=== PATIENT | female | born 1995 | race Caucasian/White ===

== ENCOUNTER 2018-04-10 21:53 | Emergency (ER) | payer OTHER, BC, SELFPAY ==
[2018-04-10 21:54] VITALS: BP 146/90; PULSE 87; RESP 18; TEMP 37.5; O2SAT 99; BMI 38.7
--- NOTE | 2018-04-10 22:28 | CT_ITS ---
STUDY: CT ABDOMEN AND PELVIS WITHOUT CONTRAST REASON FOR EXAM: Female, 22 years old. Right flank pain and decreased urination elevated blood pressure RADIATION DOSAGE (If Supplied By Facility): CTDIvol = ( 20.88 ) mGy, DLP = ( 1116.46 ) mGycm TECHNIQUE: Transaxial images were obtained from the dome of the diaphragm to the symphysis pubis without oral contrast, and without intravenous contrast. Sagittal and coronal images were reconstructed. Individualized dose optimization techniques were used for this CT. COMPARISON: The CT scan abdomen and pelvis April 04, 2013 is unavailable at this time for comparison. FINDINGS: The visualized lung bases are unremarkable. The visualized portions of the heart are within normal limits. The liver is borderline enlarged and fatty infiltrated. Normal gallbladder and extrahepatic biliary system. There is moderate splenic enlargement. Normal pancreas. Normal bilateral adrenal glands. There is no evidence of hydronephrosis of the right kidney or visualized renal stones. There is no evidence of hydronephrosis or visualized renal stones. Normal visualized stomach. There are mildly distended loops of small bowel. There is moderate stool in the colon. The appendix is visualized and appears normal. Normal abdominal aorta. Normal inferior vena cava. There a few nonspecific periaortic lymph nodes. There are small mesenteric lymph nodes Normal urinary bladder. The uterus is visualized and appears of normal size. There is an abnormal mixed density cystic mass within the left and midline pelvis with a focal linear density. This abnormal appearing mixed low attenuating mass measures 15.0 x 11.1 x 11.3 cm. Normal abdominal wall. Normal osseous structures. CT/Abdomen/Pelvis without Cont IMPRESSION: There is a 15 x 11 x 11.3 cm large abnormal mixed density mass within the left of midline pelvis. This may represent a mixed density such as a mature teratoma, or potentially ovarian neoplasm. The size and density is atypical for the evaluation is warranted with a CABLE ASSEMBLER surgical consult. This mass is pushing on the base of the bladder. [id number] constipation. Hepatic steatosis. Moderate splenomegaly. N.B. : The above information has been verbally conveyed by Xena Huitron MD to Tonya Escamilla, Referring Physician, on 04/10/2018 23:59:16 (ET). Electronically Signed: Xena Huitron MD at 0:41 EDT Tel , Service support , N.B. : The above information has been verbally conveyed by Xena Huitron MD to Tonya Escamilla, Referring Physician, on 04/10/2018 23:59:16 (ET).
[2018-04-10 22:36] LABS: Absolute Lymphocyte Count 3.42 X10^3/ul (0.83-4.51); Absolute Neutrophil Count 5.1 X10^3/uL (2.0-7.7); Basophil# 0.09 X10^3/uL; Basophil% 0.9 % (0-1); Eosinophil# 0.24 X10^3/uL; Eosinophils% 2.5 % (0-5); Hematocrit 40.5 % (37-47); Hemoglobin 13.6 g/dl (12.0-15.0); Lymphocyte # 3.42 X10^3/ul (4.0); Lymphocyte % 35.9 % (19-41); Mean Corp Hgb Conc 33.6 g/gl (32-36); Mean Corpuscular Hgb 28.5 pg (27.0-32.0); Mean Corpuscular Volume 84.9 fL (81-99); Mean Platelet Vol. 9.7 fl (6.2-12.0); Monocyte# 0.65 X10^3/uL; Monocyte% 6.8 % (0-10); Neutrophil # 5.12 X10^3/uL (2.7-7.7); Neutrophil % 53.8 % (47-70); Platelet Count 406 K/mm3 (150-450); RBC Distribution Width CV 13.1 % (11.6-14.6); RBC Distribution Width SD 40.3 fl (35.1-43.9); Red Blood Count 4.77 M/mm3 (4.2-5.4); White Blood Count 9.5 K/mm3 (4.4-11.0)
[2018-04-10 22:38] LABS: POSITIVE COUNT NO; POSITIVE DIFFERENTIAL NO; POSITIVE MORPHOLOGY NO
[2018-04-10] MEDS: Ondansetron 4 MG/2 ML Vial IV (22:39)
[2018-04-10] MEDS: Morphine 4 MG/ML Syringe IV (22:39)
--- NOTE | 2018-04-10 22:58 | ED.DCSUM_ITS ---
- ER Visit Summary Date of Service: 04/10/18 Chief Complaint: Right flank pain History of Present Illness: The patient is a 22 F presenting with right flank pain. This started earlier today. She states it was sudden in onset but has been intermittent throughout the day. She denies dysuria, hematuria, frequency. She denies fever. She has history of PCOS and states this feels different than her PCOS type pain. She has a family history of kidney stones. Denies other complaints. Physical Examination: Vitals are stable. Patient is afebrile. Alert no acute distress. HEENT exam is unremarkable. Lungs are clear and equal bilaterally. Heart is regular rate and rhythm. Abdomen is soft right lower quadrant tenderness with no rebound or guarding Back: Right CVA tenderness Extremities are unremarkable. Skin is warm and dry. No focal neurologic deficit. Remainder of exam is unremarkable. Emergency Department Course and Treatment: Patient is given morphine, Zofran IV. CBC, chemistries unremarkable. HCG negative. Urinalysis is 5-10 white cells, [address] flank shows 15 x 11 x 11 cm large abdominal mixed density mass within the left of the midline of the pelvis this may represent mixed density such as a mature teratoma or potentially ovarian neoplasm, size and density is atypical for the evaluation warranting ASSOCIATE FINANCIAL ANALYST consult. The mass is pushing on the base of the bladder. Mild to moderate constipation, hepatic steatosis, moderate splenomegaly. Findings were discussed with Dr. Banda who will see the patient for close outpatient follow-up in the office tomorrow. Patient's pain is controlled. She is given home pack of [place]. Advised return to ED if worsening complaints. Disposition: Discharge home Impression: Pelvic mass This note was generated with adicate timeads dictation software. It may contain incorrect words, spelling, and punctuation that were not noted in review of the chart prior to signing ED Disposition - Plan for ED Patient: Chief Complaint: Flank Pain Referrals: [facility] [Primary Care Provider] -
[2018-04-10 23:00] LABS: Pregnancy, Serum, hCG Quali. NEGATIVE Negative (0-9 Nonpreg)
[2018-04-10 23:10] LABS: Anion Gap 8 (5-15); BUN 12 mg/dL (7-18); BUN/Creat Ratio 13.4 RATIO (10-20); Calcium,Total 8.8 mg/dL (8.5-10.1); Chloride 105 mmol/L (98-107); Creatinine, Serum 0.89 mg/dL (0.55-1.02); EST Glomerular Filtration Rate 83 mL/min (>60); Est Glom Filt Rate - Afr Amer 100 mL/min (>60); Glucose 105 mg/dL (74-106); Potassium 3.7 mmol/L (3.5-5.1); Sodium Level 137 mmol/L (136-145)
[2018-04-10 23:19] LABS: Mucous, Urine 0 SEEN /hpf (<or=2+); Red Blood Cells-Urine 0 SEEN /hpf (0-5)
[2018-04-10 23:24] LABS: Color, Urine Yellow (Yellow); Glucose, Dipstick Normal (Normal); Ketone-Dipstick Negative (Negative); Leukocyte Esterase-Dipstick 500 /ul (Negative); Nitrite-Dipstick Negative (Negative); Occult Blood-Urine Negative /ul (Negative); Protein-Dipstick Negative (Negative); Urine Bilirubin Dipstick Negative (Negative); Urine Clarity Clear (Clear); Urine Urobilinogen Normal (Normal); Urine pH 6.5 (5.0 - 8.0)
[2018-04-10 23:30] LABS: Squamous Epithelial Cells - UA 0-5 SEEN /hpf (5-10)
[2018-04-10 23:31] LABS: Bacteria 1+ /hpf (None Seen); White Blood Cells 5-10 SEEN /hpf (0-5)
--- NOTE | 2018-04-11 00:40 | ED.DEP ---
ED Disposition - Plan for ED Patient: Chief Complaint: Flank Pain Instructions: ED Pelvic Pain [facility] Referrals: [facility] [Primary Care Provider] - Sia Banda MD [STAFF PHYSICIAN] -
[2018-04-11] MEDS: HYDROcodone Bitartrate/Apap 5/325 Tablet PO (01:10)
[2018-04-11 01:12] VITALS: BP 129/86; PULSE 90; RESP 17; O2SAT 96
--- NOTE | 2018-04-11 01:12 | ED.RN ---
IV DC'ED, CATHETER INTACT, SMALL GAUZE DRESSING PLACED. DISCHARGE INSTRUCTIONS GIVEN TO AND REVIEWED WITH PATIENT, PATIENT DENIES QUESTIONS OR CONCERNS AND VOICES UNDERSTANDING OF DISCHARGE INSTRUCTIONS. PT AMBULATES OUT OF ROOM WITHOUT DIFFICULTY.
== END 2018-04-11 01:13 | disposition home or self-care (01) ==
LOC: ED 22:54
PROVIDERS: Emergency Provider Emergency Medicine; Family Provider Family Medicine; PCP Family Medicine
DX: R19.00 Intra-abdominal and pelvic swelling, mass and lump, unspecified site (principal); K59.00 Constipation, unspecified; K76.0 Fatty (change of) liver, not elsewhere classified; R16.1 Splenomegaly, not elsewhere classified; E28.2 Polycystic ovarian syndrome; E11.9 Type 2 diabetes mellitus without complications; Z79.84 Long term (current) use of oral hypoglycemic drugs; Z79.899 Other long term (current) drug therapy
CPT/HCPCS: 74176; 80048; 81001; 84703; 85025; 96374; 96375; 99283; J7030; A4216; J2405

== ENCOUNTER → 2018-10-12 12:15 | Outpatient (CLI) | payer BC, OTHER, SELFPAY ==
[2018-10-12 12:08] VITALS: BMI 38.7
--- NOTE | 2018-10-12 12:18 | RAD_ITS ---
STUDY: X-RAY - LUMBAR SPINE REASON FOR EXAM: Female, 22 years old. Fall TECHNIQUE: 5 view(s) of the lumbar spine were obtained. COMPARISON: None FINDINGS: Normal lumbar lordosis. There is a levoscoliosis of the lumbar spine. Normal vertebral bodies and endplates. Normal disc space heights. There is no demonstrated fracture. The soft tissue structures are unremarkable. RAD/L/S Spine Min 4 Views IMPRESSION: No fracture. Disc spaces are well preserved. Mild scoliosis. Electronically Signed: Reji Nassar MD at 13:57 EST , Service support ,
--- OUTSIDE RECORDS SUMMARY | 2018-11-28 06:51 | XMS RPT_ITS ---
:1995 Author Organization OH[facility] Care Team Providers Name Role Phone Antolin Ferrell Attending Unavailable PROVIDER, UNKNOWN Referring Unavailable Te Rossi Primary Care Unavailable Antolin Ferrell Attending Unavailable PROVIDER, UNKNOWN Referring Unavailable Te Rossi Primary Care Unavailable SIA CAM MD Attending Unavailable Jessee Martino Attending Unavailable Te Rossi Referring Unavailable Jessee Martino Attending Unavailable Jessee Martino Referring Unavailable Te Rossi Primary Care Unavailable Nehemiah Junior Attending Unavailable Mara Calderon Referring Unavailable Mara Calderon Primary Care Unavailable Tonya Escamilla Attending Unavailable Te Rossi Primary Care Unavailable PROBLEMS PROBLEMS DATE TYPE CONDITION / CODE ATTENDING STATUS SOURCE 10/12/2018 Unknown S39.012A - Strain of Jessee Martino Active [facility] muscle, fascia and [facility] tendon of [facility] back, initial Repository encounter / S39.012A(ICD-10) 04/12/2018 Admitting Hypothyroidism, Ghassan, Active [facility] Diagnosis unspecified / [facility] E03.9(ICD-10) Repository 04/12/2018 Admitting Anxiety disorder, Ghassan, Active [facility] Diagnosis unspecified / [facility] F41.9(ICD-10) Repository 04/12/2018 Admitting Major depressive Ghassan, Active [facility] Diagnosis disorder, single [facility] episode, unspecified Repository / F32.9(ICD-10) 04/12/2018 Admitting Polycystic ovarian Ghassan, Active [facility] Diagnosis syndrome / [facility] E28.2(ICD-10) Repository 04/12/2018 Admitting Obesity, unspecified Ghassan, Active [facility] Diagnosis / E66.9(ICD-10) [facility] Repository 04/12/2018 Admitting Body mass index Ghassan, Active [facility] Diagnosis (BMI) 38.0-38.9, [facility] adult / Repository Z68.38(ICD-10) 04/12/2018 Admitting Personal history of Ghassan Active [facility] dis of the nervous [facility] sys and sense organs Repository / Z86.69(ICD-10) 04/12/2018 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 / [facility] D27.0(ICD-10) Repository 04/12/2018 Admitting Unspecified asthma, Ghassan, Active [facility] Diagnosis uncomplicated / [facility] J45.909(ICD-10) Repository 04/12/2018 Admitting Deficiency of other Ghassan, Active [facility] specified B group [facility] vitamins / Repository E53.8(ICD-10) 04/12/2018 Admitting Allergy status to Ghassan Active [facility] Diagnosis penicillin / [facility] Z88.0(ICD-10) Repository 04/12/2018 Admitting prison (current) Ghassan, Active [facility] Diagnosis use of hormonal [facility] contraceptives / Repository Z79.3(ICD-10) 04/11/2018 Admitting Encounter for other Ferrell, Active [facility] preprocedural [facility] examination / Repository Z01.818(ICD-10) 04/11/2018 Admitting Intra-abd and pelvic Ghassan, Active [facility] swelling, mass and [facility] lump, unsp site / Repository R19.00(ICD-10) 04/11/2018 Admitting Encounter for TUTU ANDINO, Active [facility] Diagnosis gynecological [facility] examination Repository (general) (routine) with abnormal findings / Z01.411(ICD-10) 04/11/2018 Admitting Encounter for TUTU ANDINO, Active [facility] Diagnosis screening for human [facility] papillomavirus (HPV) Repository / Z11.51(ICD-10) PROCEDURES PROCEDURES No Procedure Records FoundRESULTS RESULTS URGENT CARE VISIT Observed: 10/12/2018 Status: F Source: JUNIOR REPORT 1:42 PM [facility] REPOSITORY [facility] [address] [place] [address] OFFICE VISIT Date of Service: 10/12/18 MR#: [id number] Acct: [id number] Name: MARSHALLKELLI C Rep #: [id number] : 1995 Provider: Jessee GARZA Age/Sex: 22/F Location: [facility] Status: Signed Intake Vital Signs10/12/18 Height 5 ft 9 in Intake Visit Reasons: BACK SWELLING? Chief Complaint: Back pain Clinical Veterinarian Required: No Accompanied by: Self Is patient in pain?: Yes Allergies amoxicillin [From Augmentin] Allergy (Verified 10/12/18 12:08) Unknown clavulanic acid [From Augmentin] Allergy (Verified 10/12/18 12:08) Unknown Penicillins Allergy (Verified 10/12/18 12:08) Hives Medications drospirenone 3 mg-ethinyl estradiol 0.02 mg tablet 1 tab PO QDAY 10/06/17 [History Confirmed 04/10/18] fluoxetine 10 mg capsule 10 mg PO QDAY 10/06/17 [History Confirmed 04/10/18] lithium carbonate 300 mg capsule 300 mg PO TID cap 10/06/17 [History Confirmed 04/10/18] metformin 500 mg tablet 500 mg PO BID 10/06/17 [History Confirmed 04/10/18] Hydroxyzine HCl 10 mg PO BID 04/10/18 [History Confirmed 04/10/18] acetaminophen 325 mg capsule 325 mg PO Q6H PRN 10/12/18 [History Confirmed 10/12/18] cyclobenzaprine 5 mg tablet 5 mg PO TID PRN #30 tab 10/12/18 [Rx Confirmed 10/12/18] ibuprofen 200 mg capsule 200 mg PO TID-QID PRN 10/12/18 [History Confirmed 10/12/18] PENDING SALE TO [facility] Medical History Anemia (Acute) Asthma (Acute) Bruise (Acute) Difficulty balancing (Acute) Fatigue (Acute) Limb weakness (Acute) PCOS (polycystic ovarian syndrome) (Acute) Severe headache (Acute) Thyroid disease (Acute) Social History Smoking Status: Never smoker alcohol intake: never HPI HPI Chief Complaint: Back pain Details: KELLI MARSHALL, is a 22 F who presents to the office today for concern for left lower back pain after a fall last week. Patient states that after the fall while she was at work she felt a pop in her left lower back and then has since had pain which radiates down the left leg. She states that she has difficulty straightening the left leg due to the pain which she rates a 4-5 out of 10 despite the use of ibuprofen. She denies any numbness or tingling or any loss of bowel/bladder control. No previous back injuries. No other associated symptoms or alleviating/aggravating factors. ROS Const Constitutional: No chills, fever(s), fatigue or abnormal sleep pattern Musc Musculoskeletal: Positive for back pain and radiating pain into limb; no joint swelling, deformity, limited range of motion, numbness, tingling, stiffness or abnormal walking Skin Skin: No wounds or lesions Neuro Neurology: No behavioral changes, confusion, numbness, tingling or abnormal walking Psych Psychiatric: No behavioral changes, No confusion, No abnormal sleep pattern Endo Endocrine: No fatigue Exam Const General: cooperative, healthy appearing Musc Cervical Spine: normal cervical lordosis and cervical ROM normal Thoracic/Lumbar Spine: thoraco-lumbar ROM normal, straight leg raise positive left: at 30 degrees, thoraco-lumbar spasm on the left in the lower lumbar, lumbar spinal tenderness at L5 and at L4 Skin General: no rashes or lesions noted Neuro General: alert, CN's II-XI intact bilaterally Gait: normal gait Motor: muscle tone normal throughout, strength 5/5 throughout Sensory Exam: no sensory deficits noted Psych Appearance: grossly normal Mental Status: mental status grossly normal Assessment AND Plan Problems 1. Strain of lumbar region, initial encounter S39.012A Plan X-ray of the lumbar spine reviewed and interpreted by myself finding no acute bony abnormalities. Awaiting radiology interpretation at time of dictation. Patient advised to use ibuprofen or Tylenol as needed for pain as well as given a prescription for cyclobenzaprine. Also advised to use warm compress multiple times daily and to discontinue any heavy lifting or repetitive motions at the waist. Patient advised to follow- up with PCP in 5-7 days if no better or sooner if worse. Advised of potential red flags and when appropriate to report to the ED. Patient verbalized understanding and agreement with all the above. Orders Orders: Medications New: Coding Level of Care Code Off vis,est,level 4 Diagnoses Strain of lumbar region, initial encounter S39.012A Encounter type: initial encounter 10/12/18 1342 <Electronically signed by Jessee GARZA> Date Jessee GARZA Cosigner Signature: Date (if applicable) CC: L/S SPINE MIN 4 Observed: 10/12/2018 Status: F Source: JOSH VIEWS 12:18 PM [facility] REPOSITORY [facility] Imaging Services [address] [place] [address] L/S Spine Min 4 Views MR#: [id number] Acct: [id number] Name: KELLI MARSHALL Rep #: [id number] : 1995 F 22 From: Reji Nassar MD PCP: Te Rossi Status: REG CLI Study: L/S Spine Min 4 Views Date of Exam: 10/12/18 Exam# [id number] Ordering Dr: Jessee Martino STUDY: X-RAY - LUMBAR SPINE REASON FOR EXAM: Female, 22 years old. Fall TECHNIQUE: 5 view(s) of the lumbar spine were obtained. COMPARISON: None FINDINGS: Normal lumbar lordosis. There is a levoscoliosis of the lumbar spine. Normal vertebral bodies and endplates. Normal disc space heights. There is no demonstrated fracture. The soft tissue structures are unremarkable. RAD/L/S Spine Min 4 Views IMPRESSION: No fracture. Disc spaces are well preserved. Mild scoliosis. Electronically Signed: Reji Nassar MD at 13:57 EST , Service support , CC: Te Rossi; Jessee GARZA Qa Reviewer: Signed Observed: 04/12/2018 Status: F Source: [facility] SURGICAL PATHOLOGY 4:09 PM SYSTEM REPOSITORY [id number] [facility] 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 [facility] <Sign Out Dr. Dotson> ADAN VELASQUEZ M.D. CLINICAL INFORMATION: Pelvic mass, right ovarian dermoid SPECIMEN: OVARIAN CYST GROSS DESCRIPTION: Right ovarian cyst Received in formalin is a previously partially collapsed cystic specimen measuring 7 x 4.5 x 5 cm. The specimen in its collapsed, fixed state weighs 62 grams. The previously opened specimen demonstrates multiple cysts filled with friable soft white-cornelius sebaceous-like material. The external surface is wrinkled pink-hughes. No fallopian tube is visible on the surface. One area of the surface has a slightly firm white cartilaginous appearance. Upon further transection of the specimen, the cyst demonstrates smooth inner randolph. Some areas of the wall appear focally calcified. No residual ovarian parenchyma is seen. Multiple manufacturer's representative sections are submitted in a total of five cassettes. (bits ss, 5) JCK/0RW Disclaimer: The following statement applies to all immunohistochemistry, in situ hybridization, molecular studies, and immunofluorescence testing. The use of one or more reagents in the above tests is regulated as an analyte specific reagent (ASR). These tests were developed and their performance characteristics determined by the clinical laboratories of [facility]. They have not been cleared by the US Food and Drug Administration (FDA). The FDA has determined that such clearance or approval is not necessary. All the above immunostains were performed on paraffin embedded tissue. Appropriate positive and negative controls (where applicable) were run in parallel with the patient's specimen; these controls showed expected staining pattern, with acceptable intensity of staining. Immunohistochemical assays have not been validated on decalcified tissues. Results should be interpreted with caution given the raised possibility of false negativity on decalcified specimens. Professional Performing Location: [address] [address]. DEPARTMENT OF PATHOLOGY AND LABORATORY MEDICINE [place], [place] [address] HCG,URINE QUAL Collected: 04/12/2018 Status: F Source: [facility] 12:55 PM SYSTEM REPOSITORY TYPE CODE TESTS RESULT OUT OF REFERENCE UNITS RANGE LAB HCGUR Negative NA Negative HCG,Urine Qual Result Comment: is the most common reason for HCG in urine, although choriocarcinoma, hydatidiform mole, and certain nontropho- blastic malignancies also result in detectable urinary HCG levels. Sensitivity = 20mIU/mL. Performed By: #### HCGUR #### [address] [address] COM WRITER CYTOLOGY REPORT Observed: 04/11/2018 Status: F Source: [facility] 11:20 AM FOUNDATION REPOSITORY . Pathology Reports Accession: Collected Date/Time: Received Date/Time: Pathologist: [id number] 04/11/2018 11:20 EDT 04/11/2018 18:00 EDT Cabin Crew Cytology Report SPECIMEN: Specimen Description: Liquid Prep w/ HPV Specimen: Cervical/Endocervical Screening or Diagnostic: Screening RELEVANT HISTORY: LMP: 03-27-18 CONTROL : YES [id number] SPECIMEN ADEQUACY: SATISFACTORY FOR EVALUATION ENDOCERVICAL/TRANSFORMATIONAL ZONE COMPONENT PRESENT INTERPRETATION/RESULTS: NEGATIVE FOR INTRAEPITHELIAL LESION OR MALIGNANCY ADJUNCTIVE TESTING: HIGH RISK HPV DNA TESTING ORDERED, REPORT TO FOLLOW UNDER SEPARATE COVER Electronically Signed by Pathology report verified by [facility]. Screened by: LS Electronically signed by Elizabeth ROBERSON (ASCP) Sign-Out Date: 04/17/2018 09:25 Performing Lab: [address] Disclaimer The Pap test is a screening test for cervical cancer. As evidenced by published data, it is subject to both inherent false negative and false positive results. Your patient's results should be interpreted in context with pertinent clinical history including gynecological examination. Performed By: #### GYCR #### [place] [id number] HPV Collected: 04/11/2018 Status: F Source: [facility] 11:20 AM FOUNDATION REPOSITORY Order Comment: Order placed by AP_HPV_ORDER rule from [id number] TYPE CODE TESTS RESULT OUT OF REFERENCE UNITS RANGE LAB BFHPV(LOINC ) HPV Source Cervix LAB HPVINT(LOIN See Interp HPVN C) HPV Interp Result Comment: High Risk HPV Typing: NEGATIVE HPV types 16, 18, 31, 33, 35, 39, 45, 51, 52, 56, 58, 59, 66 and 68 DNA were undetectable or below the pre-set threshold. The gordo High-Risk HPV DNA Test is not intended for use as a screening device for Pap normal women under age 30 and is not intended to substitute for regular Pap screening. The gordo High-Risk HPV DNA Test is designed to augment existing methods for the detection of cervical disease and should be used in conjunction with clinical information derived from other diagnostic and screening tests, physical examinations and full medical history in accordance with appropriate patient management procedures. NOTE: A negative result does not preclude the presence of HPV infection because results depend on adequate specimen collection, absence of inhibitors and sufficient DNA to be detected. See Interp HPVN Performed By: #### HPV #### [facility] [address] [place] [address] EMERGENCY DEPARTMENT Observed: 04/11/2018 Status: F Source: JUNIOR SUMMARY 1:08 AM [facility] REPOSITORY [facility] Medical Records Department [address] [place] [address] Emergency Department Summary 04/10/18 2256 MR#: [id number] Acct: [id number] Name: KELLI MARSHALL Rep #: [id number] : 1995 22 From: Tonya Escamilla MD PCP: Te Rossi Status: REG ER - ER Visit Summary Date of Service: 04/10/18 Chief Complaint: Right flank pain History of Present Illness: The patient is a 22 F presenting with right flank pain. This started earlier today. She states it was sudden in onset but has been intermittent throughout the day. She denies dysuria, hematuria, frequency. She denies fever. She has history of PCOS and states this feels different than her PCOS type pain. She has a family history of kidney stones. Denies other complaints. Physical Examination: Vitals are stable. Patient is afebrile. Alert no acute distress. HEENT exam is unremarkable. Lungs are clear and equal bilaterally. Heart is regular rate and rhythm. Abdomen is soft right lower quadrant tenderness with no rebound or guarding Back: Right CVA tenderness Extremities are unremarkable. Skin is warm and dry. No focal neurologic deficit. Remainder of exam is unremarkable. Emergency Department Course and Treatment: Patient is given morphine, Zofran IV. CBC, chemistries unremarkable. HCG negative. Urinalysis is 5- 10 white cells, [address] flank shows 15 x 11 x 11 cm large abdominal mixed density mass within the left of the midline of the pelvis this may represent mixed density such as a mature teratoma or potentially ovarian neoplasm, size and density is atypical for the evaluation warranting COM WRITER consult. The mass is pushing on the base of the bladder. Mild to moderate constipation, hepatic steatosis, moderate splenomegaly. Findings were discussed with Dr. Cam who will see the patient for close outpatient follow-up in the office tomorrow. Patient's pain is controlled. She is given home pack of [place]. Advised return to ED if worsening complaints. Disposition: Discharge home Impression: Pelvic mass This note was generated with [employer] dictation software. It may contain incorrect words, spelling, and punctuation that were not noted in review of the chart prior to signing ED Disposition - Plan for ED Patient: Chief Complaint: Flank Pain Referrals: Te Rossi [Primary Care Provider] - What to do if you have Problems For any increased pain, shortness of breath, bleeding, nausea or vomiting, chest pain, or any unexpected problems, contact your Primary Care Provider. Call [facility] ([phone]) or report to the closest Emergency Room. Call 911 if necessary. 04/11/18 0108 <Electronically signed by Tonya Escamilla MD> Date Tonya Escamilla MD Cosigner Signature (If Indicated): Date CC: Te Rossi MD DISCHARGE INSTRUCTION Observed: 04/11/2018 Status: F Source: JOSH 12:41 AM [facility] REPOSITORY [facility] Medical Records Department [address] [place] [address] Discharge Instruction 04/11/1839 MR#: [id number] Acct: [id number] Name: KELLI MARSHALL Rep #: [id number] : 1995 22 From: Tonya Escamilla MD PCP: Te Rossi Status: REG ER ED Disposition - Plan for ED Patient: Chief Complaint: Flank Pain Instructions: ED Pelvic Pain UKO Referrals: Te Rossi [Primary Care Provider] - Sia Cam MD [STAFF PHYSICIAN] - What to do if you have Problems For any increased pain, shortness of breath, bleeding, nausea or vomiting, chest pain, or any unexpected problems, contact your Primary Care Provider. Call [facility] ([phone]) or report to the closest Emergency Room. Call 911 if necessary. 04/11/18 004 <Electronically signed by Tonya Escamilla MD> Date Tonya Escamilla MD Cosigner Signature (If Indicated): Date CC: Te Rossi MD URINALYSIS, COMPLETE Collected: 04/10/2018 Status: F Source: JOSH 11:10 PM [facility] REPOSITORY Order Comment: Order Date: 04/10/18 How was Urine Obtained? CLEAN CATCH TYPE CODE TESTS RESULT OUT OF RANGE REFERENCE UNITS LAB L400.3000 Yellow COLOR Normal Yellow LAB L400.3050 Clear Normal CLARITY Clear LAB L400.3200 Normal mg/dl Normal GLUCOSE, UR Normal LAB L400.3300 Negative mg/dL Normal BILIRUBIN URINE Negative LAB L400.3400 Negative mg/dl Normal KETONE UR Negative LAB L400.3465 1.002-1.030 Normal SP.GR. DIPSTX 1.010 LAB L400.3550 5.0 - 8.0 pH UR Normal 6.5 LAB L400.3600 Negative mg/dl PROT Normal DIPSTX Negative LAB L400.3700 Normal mg/dl Normal UROBILI Normal LAB L400.3750 Negative Normal NITRITE UR Negative LAB L400.3780 Negative /ul Normal OCCULT BLOOD-UR Negative LAB L400.3800 Negative /ul High LEUK ESTERASE 500 LAB L400.4050 0-5 /hpf WBC Normal 5-10 SEEN LAB L400.4100 0-5 /hpf 0 Normal RBC-UA SEEN LAB L400.4150 5-10 /hpf SQUAM Normal EPI 0-5 SEEN LAB L400.4300 None Seen /hpf 1+ Normal BACTERIA LAB L400.4350 <or=2+ /hpf 0 Normal MUCUS, URINE SEEN Performed By: #### L400.0001 #### [facility] [address] [facility] [place], [address] ABDOMEN/PELVIS WITHOUT Observed: 04/10/2018 Status: F Source: JUNIOR CONT 10:29 PM [facility] REPOSITORY [facility] Imaging Services [address] [place] [address] Abdomen/Pelvis without Cont MR#: [id number] Acct: [id number] Name: KELLI MARSHALL Rep #: [id number] : 1995 F 22 From: Xena Huitron MD PCP: Te Rossi Status: REG ER Study: Abdomen/Pelvis without Cont Date of Exam: 04/10/18 Exam# [id number] Ordering Dr: Tonya Escamilla MD STUDY: CT ABDOMEN AND PELVIS WITHOUT CONTRAST REASON FOR EXAM: Female, 22 years old. Right flank pain and decreased urination elevated blood pressure RADIATION DOSAGE (If Supplied By Facility): CTDIvol = ( 20.88 ) mGy, DLP = ( 1116.46 ) mGycm TECHNIQUE: Transaxial images were obtained from the dome of the diaphragm to the symphysis pubis without oral contrast, and without intravenous contrast. Sagittal and coronal images were reconstructed. Individualized dose optimization techniques were used for this CT. COMPARISON: The CT scan abdomen and pelvis April 04, 2013 is unavailable at this time for comparison. FINDINGS: The visualized lung bases are unremarkable. The visualized portions of the heart are within normal limits. The liver is borderline enlarged and fatty infiltrated. Normal gallbladder and extrahepatic biliary system. There is moderate splenic enlargement. Normal pancreas. Normal bilateral adrenal glands. There is no evidence of hydronephrosis of the right kidney or visualized renal stones. There is no evidence of hydronephrosis or visualized renal stones. Normal visualized stomach. There are mildly distended loops of small bowel. There is moderate stool in the colon. The appendix is visualized and appears normal. Normal abdominal aorta. Normal inferior vena cava. There a few nonspecific periaortic lymph nodes. There are small mesenteric lymph nodes Normal urinary bladder. The uterus is visualized and appears of normal size. There is an abnormal mixed density cystic mass within the left and midline pelvis with a focal linear density. This abnormal appearing mixed low attenuating mass measures 15.0 x 11.1 x 11.3 cm. Normal abdominal wall. Normal osseous structures. CT/Abdomen/Pelvis without Cont IMPRESSION: There is a 15 x 11 x 11.3 cm large abnormal mixed density mass within the left of midline pelvis. This may represent a mixed density such as a mature teratoma, or potentially ovarian neoplasm. The size and density is atypical for the evaluation is warranted with a COM WRITER surgical consult. This mass is pushing on the base of the bladder. Tzcp-dl-diwbhcdb constipation. Hepatic steatosis. Moderate splenomegaly. N.B. : The above information has been verbally conveyed by Xena Huitron MD to Tonya Escamilla, Referring Physician, on 04/10/2018 23:59:16 (ET). Electronically Signed: Xena Huitron MD at 0:41 EDT Tel , Service support , N.B. : The above information has been verbally conveyed by Xena Huitron MD to Tonya Escamilla, Referring Physician, on 04/10/2018 23:59:16 (ET). CC: Te Rossinaomi Escamilla MD Qa Reviewer: Signed CBC W/DIFF, AUTOMATED Collected: 04/10/2018 Status: F Source: JOSH 10:15 PM [facility] REPOSITORY TYPE CODE TESTS RESULT OUT OF RANGE REFERENCE UNITS LAB L100.1000 4.4-11.0 K/mm3 Normal WBC 9.5 LAB L100.1200 4.2-5.4 M/mm3 Normal RBC 4.77 LAB L100.1300 12.0-15.0 g/dl Normal HGB 13.6 LAB L100.1400 37-47 % Normal HCT 40.5 LAB L100.1500 81-99 fL Normal MCV 84.9 LAB L100.1600 27.0-32.0 pg Normal MCH 28.5 LAB L100.1700 32-36 g/gl Normal MCHC 33.6 LAB L100.1810 11.6-14.6 % Normal RDW CV 13.1 LAB L100.1820 35.1-43.9 fl Normal RDW SD 40.3 LAB L100.1900 150-450 K/mm3 Normal PLT 406 LAB L100.2000 6.2-12.0 fl Normal MPV 9.7 LAB L100.2100 47-70 % Normal NEUT% 53.8 LAB L100.2200 19-41 % Normal LY% 35.9 LAB L100.2300 0-10 % Normal MONO% 6.8 LAB L100.2400 0-5 % Normal EO% 2.5 LAB L100.2500 0-1 % Normal BASO% 0.9 LAB L100.2550 0.0-0.9 % Normal IM GRAN % 0.100 Result Comment: IG% - Immature Granulocytes (promyelocytes, myelocytes and metamyelocytes) > 1% indicates that a LEFT SHIFT is Present. LAB L100.2620 2.0-7.7 X10 3/uL Normal Absolute Neut 5.1 LAB L100.2720 0.83-4.51 X10 3/ul Normal Absolute Lymph 3.42 Performed By: #### L100.0100 #### [facility] [address] [place], [address] ,SERUM,HCG QUALI. Collected: Status: F Source: 04/10/2018 10:15 PM [facility] REPOSITORY TYPE CODE TESTS RESULT OUT OF REFERENCE UNITS RANGE LAB L700.7000 0-9 Nonpreg Negative Normal HCGSQUAL NEGATIVE LAB L700.6700 =>Qualitative mIU/mL Normal HCG Qual < 1 triggr Performed By: #### L700.6800 #### [facility] [address] [place], [place], [address] BASIC METABOLIC Collected: 04/10/2018 Status: F Source: JOSH PROFILE (BMP) 10:15 PM [facility] REPOSITORY TYPE CODE TESTS RESULT OUT OF RANGE REFERENCE UNITS LAB L501.0100 74-106 mg/dL Normal GLU 105 Result Comment: Fasting Glucose result from 100 to 125 mg/dL suggests IMPAIRED HOMEOSTASIS per A.D.A. criteria. Please note revised GLUCOSE reference range effective 2017. LAB L501.1000 7-18 mg/dL Normal BUN 12 LAB L501.1100 0.55-1.02 mg/dL Normal CREAT,SERUM 0.89 Result Comment: The validity of the calculated GFR AND GFRAA in patients over 70 years has not been determined. Clinical correlation is essential. LAB L501.1110 >60 mL/min Normal EST GFR 83 Result Comment: Non- GFR Calc LAB L501.1115 >60 mL/min Normal EST GFR - AA 100 Result Comment: GFR Calc LAB L501.1300 10-20 RATIO Normal BUN/CRE 13.4 LAB L501.2200 8.5-10.1 mg/dL CA Normal 8.8 LAB L501.5300 136-145 mmol/L NA Normal 137 LAB L501.5600 3.5-5.1 mmol/L K Normal 3.7 LAB L501.5900 98-107 mmol/L CL Normal 105 LAB L501.6100 21.0-32.0 mmol/L Normal CO2 24.0 LAB L501.6200 5-15 Normal GAP 8 Performed By: #### L500.2500 #### [facility] [address] [place], [address] URGENT CARE VISIT Observed: 11/22/2017 Status: F Source: JOSH REPORT 6:08 PM [facility] REPOSITORY Now [address] [place] [address] OFFICE VISIT Date of Service: 11/22/17 MR#: [id number] Acct: [id number] Name: KELLI MARSHALL Rep #: [id number] : 1995 Provider: Nehemiah GARZA Age/Sex: 22/F Location: [facility] Status: Signed Intake Vital Signs11/22/17 Height 5 ft 9 in Intake Visit Reasons: SOB/ Asthma Is patient in pain?: No Allergies amoxicillin [From Augmentin] Allergy (Verified 11/22/17 17:54) Unknown clavulanic acid [From Augmentin] Allergy (Verified 11/22/17 17:54) Unknown Penicillins Allergy (Verified 11/22/17 17:54) Hives Medications drospirenone-ethinyl estradiol 3 mg-0.02 mg (24) tablet 1 tab PO QDAY 10/06/17 [History Confirmed 11/22/17] fluoxetine 10 mg capsule 10 mg PO QDAY 10/06/17 [History Confirmed 11/22/17] lithium carbonate 300 mg capsule 300 mg PO TID cap 10/06/17 [History Confirmed 11/22/17] metformin 500 mg tablet 500 mg PO BID 10/06/17 [History Confirmed 11/22/17] benzonatate 200 mg capsule 200 mg PO TID PRN #20 cap 11/22/17 [Rx Confirmed 11/22/17] PENDING SALE TO [facility] Medical History Anemia (Acute) Asthma (Acute) Bruise (Acute) Difficulty balancing (Acute) Fatigue (Acute) Limb weakness (Acute) PCOS (polycystic ovarian syndrome) (Acute) Severe headache (Acute) Thyroid disease (Acute) Social History Smoking Status: Unknown if ever smoked alcohol intake: never HPI SOB/ Asthma: Chief Complaint: Shortness of breath and cough Details: KELLI MARSHALL, is a 22 F who presents to the office today for initial evaluation approximately 48 hour history of progressively worsening cough -particularly when supine -as well as shortness of breath is no longer assisting with albuterol inhaler. She knows no complaints of fever, chills, sweats, rash. She has no complaints of chest pains. She notes no other associated symptoms no other alleviating or aggravating factors. ROS Const Constitutional: No excessive sweating, abnormal sleep pattern, chills, fever(s), night sweats or body ache Eyes Eyes: No change in vision ENT ENT: No abnormal hearing, ear pain, ear discharge, ear pressure, hearing loss, post nasal drip or sinus pressure Resp Respiratory: Positive for cough and shortness of breath; no chest congestion Cardio Cardiology: No excessive sweating, chest pain at rest, chest pain with exertion, shortness of breath, dyspnea on exertion, irregular heart rhythm, generalized swelling or leg pain with exertion Gastro GI: No abdominal pain, change in stool character or change in bowel habits Musc Musculoskeletal: No joint pain, back pain or limited range of motion Skin Skin: No change in hair or sores Neuro Neurology: No abnormal hearing, abnormal speech or abnormal movements Psych Psychiatric: No abnormal sleep pattern Endo Endocrine: No excessive sweating, change in body appearance, cold intolerance or heat intolerance Aller/Imm Allergy/Immunologic: No food intolerance Saul/Lymp Hematologic/Lymphatic: No easy bruising Exam Const General: cooperative, healthy appearing, no acute distress, comfortable Nutritional Appearance: average body habitus, obese Orientation: alert, awake, oriented x3 HENMT Head: normal to inspection Ears: hearing grossly normal bilaterally, external ears normal, TM's normal bilaterally, EAC's normal Nose: external nose normal, nares normal, septum normal, no nasal discharge Face and sinus: normal facial exam, sinuses nontender, face symmetric Mouth: oral mucosae normal, lip normal, oropharynx normal, tongue normal Eyes General: appearance normal, both eyes and all related structures Neck Neck: normal visual inspection, full ROM, no lymphadenopathy, no meningeal signs, supple Neck mass: No Thyroid: thyroid normal Lymphatic: no lymphadenopathy noted Chest Chest palpation AND inspection: normal inspection of the chest Resp Effort AND Inspection: normal respiratory effort, able to speak in complete sentences, cough (Nonproductive) Quality of cough: wet Auscultation: Bilateral: Clear to Auscultation Cardio Palpation: normal PMI Rate: regular rate Rhythm: regular rhythm Heart Sounds: S1 normal, S2 normal, no gallops, no murmurs, no rubs Pulses: radial pulses present GI Inspection: normal to inspection Skin General: no rashes or lesions noted Neuro General: alert, awake, oriented x3, gait normal Cognition: normal cognition Speech: speech normal Gait: normal gait Motor: muscle tone normal throughout Sensory Exam: no sensory deficits noted Extrem General: normal to inspection Psych Appearance: grossly normal Mental Status: mental status grossly normal Mood: congruent mood Affect: normal affect Speech and Movement: speech and movement normal Attitude: cooperative Thought Process: normal Thought Content: normal Judgment: judgment good Assessment AND Plan Problems 1. Bronchitis J40 Plan Benzonatate as prescribed today. Reinforced with patient that albuterol inhaler will not help her current symptoms as her lungs are clear to auscultation throughout with excellent air exchange. Clear fluids, rest, Advil/Tylenol as needed for symptomatic relief. Follow-up with PCP in 3-5 days should symptoms not improve, ED sooner should symptoms worsen or other concerns develop. Patient and father stated knowledge and understanding of above. This note was generated with 2345.comation software. It may contain incorrect words, spelling, and punctuation that were not noted in checking the note before signing. Medications New: Coding Level of Care Code Off vis,est,level 4 Diagnoses Bronchitis J40 11/22/17 1808 <Electronically signed by Nehemiah GARZA> Date Nehemiah GARZA Cosigner Signature: Date (if applicable) CC: ALLERGIES ALLERGIES DATE TYPE / CODE NAME / CODE REACTION SEVERITY SOURCE 10/12/2018 Drug Penicillins/F0010 Hives Unknown Ira Allergy/416 52755(RXNORM) [facility] 748886([facility] ED CT) Repository 10/12/2018 Drug clavulanic Unknown Unknown Ira Allergy/416 acid/[id number](R [facility] 207957([facility] ED CT) Repository 10/12/2018 Drug amoxicillin/F0060 Unknown Unknown Ira Allergy/416 66682(RXNORM) [facility] 508290([facility] ED CT) Repository ENCOUNTERS ENCOUNTERS ADMIT/DISCHARGE ACCOUNT NUMBER ADMITTING ENCOUNTER LOCATION SOURCE CLASS 10/12/2018 [id number] Ambulatory Ira Josh [facility] ding:MTRAD Repository 10/12/2018/10/12/20 [id number] Ambulatory BMSBuilding: Ira [facility] Repository 04/12/2018 [id number] [address] [place], [place] [address]m: System [id number]: Repository [id number] 04/11/2018 [id number] Ambulatory [facility] Repository 04/11/2018/04/15/20 [id number] Ambulatory SUGARCREEK Barak 18 [facility] ding:DROP Foundation Repository 04/10/2018/04/11/20 [id number] Emergency Ira Ira 18 [facility] ding:ED Repository 11/22/2017/11/22/19 [id number] Ambulatory BMSBuilding: Ira [facility] Repository PAYERS PAYERS ENCOUNTER GUARANTOR PAYER SUBSCRIBER SOURCE 10/12/2018 KELLI C Primary KELLI C Josh Insurance:ANTHEMPolicy SUMMERSDOB: [facility] Number: [id number] [facility] + [id number] Repository [address]Rfm: [phone]) Date:0219-99-31ZI [phone] () [address] [place] [address] 39199RZ: 10/12/2018 Secondary YOLANDA A Josh Insurance:MEDICAL SUMMERSDOB: [facility] [id number] Number: Repository [id number] Date:8637-53-15XW [address] [address]RX: 10/12/2018 Tertiary NOT GIVENUNK Ira Insurance:SELF PAY [facility] Number: Effective Repository Date:2018-10-12 10/12/2018 KELLI C Primary KELLI C Ira Insurance:ANTHEMPolicy SUMMERSDOB: [facility] Number: [id number] Health + [id number] Repository 57606Qxs: [phone]) Date:8012-77-83ZS [phone] () [id number] [place] [address] 14[address]VA: 10/12/2018 Secondary YOLANDA A Josh Insurance:MEDICAL SUMMERSDOB: [facility] [id number] Hospital Number: Repository [id number] Date:[id number] [address]RM: 10/12/2018 Tertiary NOT GIVENUNK Josh Insurance:SELF PAY [facility] Number: Effective Repository Date:2018-10-12 04/12/2018 Kelli Primary Kelli [facility] SummersDOB: Insurance:[employer] SummersDOB: System [place] [employer] [place] [id number] Repository [facility] Number: LnWoocarlie MD Effective Date: 17286Kpd: () 04/12/2018 Secondary Radha SummersDOB: [facility] Insurance:Medical [id number] [facility] Repository Number: Effective Date: 04/11/2018 Kelli Primary Kelli [facility] SummersDOB: Insurance:[employer] SummersDOB: System [place] [employer] [place] [id number] Repository [facility] Number: LnWoocarlie MD Effective Date: 770[address]Hbz: () 04/11/2018 Secondary Radha SummersDOB: [facility] Insurance:Medical [id number] [facility] Repository Number: Effective Date: 04/11/2018 KELLI C Primary KELLI C [facility] SUMMERSDOB: Insurance:ANTHEM BLUE SUMMERSDOB: [facility] [id number] Repository MEADOW Number: [facility] [place] [id number] [facility] SERVICE UNIT[facility]LIER[place], [place] [address]Zxa: [phone]) Date:2018-04-11Tel: () [id number] [phone] Name:SAUNDRA YOLANDA ()Tel: [phone], [place] 000-0000 () 664[address]VK: 04/11/2018 Secondary YOLANDA [facility] Insurance:MEDICAL SUMMERSDOB: [address] [id number] Repository Number: MAYUR [id number] [place] Date:2018-04-11 [address]Kpr: [phone] [id number] [phone] Name:[facility] ()Tel: [phone]) [address], [place] [phone] () 35[address]WE: 04/10/2018 KELLI C Primary YOLANDA A Ira [id number] Insurance:MEDICAL SUMMERSDOB: [facility] [id number] Number: Repository [id number]: 330 [id number] [phone] () Date:9098-14-27WS [address] [address]RE: 04/10/2018 Secondary KELLI C Josh Insurance:ANTHEMPolicy SUMMERSDOB: [facility] Number: [id number] Hospital [id number] Repository Date:1614-88-51AR [address] [place] [address] 15[address]TN: 04/10/2018 Tertiary NOT GIVENUNK Josh Insurance:SELF PAY [facility] Number: Effective Repository Date:2018-04-10 11/22/2017 KELLI Primary Yolanda A Ira [id number] Insurance:MEDICAL SummersDOB: [facility] [id number] [place] Number: Repository [address]Iap: 330 [id number] [phone] () Date:[id number] [address]MC: 11/22/2017 Secondary NOT GIVENUNK Ira Insurance:SELF PAY [facility] Number: Effective Repository Date:2017-11-22
== END ==
PROVIDERS: Family Provider Family Medicine; PCP Family Medicine; Referring Provider Physician Assistant Surgical; Visit Provider Physician Assistant Surgical
DX: S39.012A Strain of muscle, fascia and tendon of lower back, initial encounter (principal)
CPT/HCPCS: 72110

== ENCOUNTER → 2018-12-27 14:44 | Outpatient (CLI) | payer BC, OTHER, SELFPAY ==
[2018-12-19 14:07] VITALS: BMI 38.7
--- NOTE | 2018-12-27 14:46 | CT_ITS ---
STUDY: CT ABDOMEN AND PELVIS WITH CONTRAST REASON FOR EXAM: Female, 23 years old. Abdominal pain. RADIATION DOSAGE (If Supplied By Facility): CTDIvol = ( 16.61 ) mGy, DLP = ( 1318.56 ) mGycm TECHNIQUE: Transaxial images were obtained from the dome of the diaphragm to the symphysis pubis with oral contrast. Isovue 300 100 IV/Oral was administered. Sagittal and coronal images were reconstructed. Individualized dose optimization techniques were used for this CT. COMPARISON: April 10, 2018. FINDINGS: The visualized lung bases are unremarkable. The visualized portions of the heart are within normal limits. The liver is mildly enlarged and diffusely fatty infiltrated. There is focal fatty sparing in the gallbladder fossa. Normal gallbladder and extrahepatic biliary system. Mild splenomegaly. Normal pancreas. Normal bilateral adrenal glands. Normal right kidney. Normal left kidney. Normal visualized ureters. Normal visualized stomach. Normal small intestine. Normal colon. The appendix is visualized and appears normal. Normal abdominal aorta. Normal inferior vena cava. Normal retroperitoneum. Normal urinary bladder. Uterus is midline and anteverted. There are multiple follicles in both ovaries without mass or cyst. There is no pelvic lymphadenopathy. No free air or free fluid is seen within the peritoneal cavity. There is a small umbilical hernia of omental fat. The abdominal wall is otherwise unremarkable. Normal osseous structures. CT/Abdomen/Pelvis WITH Contrast IMPRESSION: 1. Absence of the mixed density mass seen in the anterior pelvis on the previous examination. 2. No evidence of acute intra-abdominal or pelvic abnormality. 3. Mild hepatosplenomegaly with fatty infiltration of the liver, unchanged from the prior study. Electronically Signed: Rafael Rueda DO at 16:30 EST Tel [phone], Service support ,
== END ==
PROVIDERS: Family Provider Family Medicine; PCP Family Medicine; Referring Provider Surgery; Visit Provider Surgery
DX: R10.31 Right lower quadrant pain (principal)
CPT/HCPCS: 74177; Q9967

== ENCOUNTER 2019-08-29 19:27 | Emergency (ER) | payer OTHER, BC, SELFPAY ==
[2019-06-03 13:09] VITALS: BMI 38.7
[2019-08-29 19:28] VITALS: BP 156/92; PULSE 110; RESP 18; TEMP 36.8; O2SAT 99; BMI 35.9
--- NOTE | 2019-08-29 19:35 | RAD_ITS ---
STUDY: X-RAY - LEFT HAND REASON FOR EXAM: Female, 23 years old. patients hand was caught in a machine at work, pain, main injury to 5th digit TECHNIQUE: 3 view(s) of the hand. COMPARISON: None. FINDINGS: Normal radiocarpal articulation. Normal distal radioulnar joint. Normal visualized carpal bones. Normal carpal articulations Normal carpometacarpal articulation of the thumb. Normal second through fifth carpometacarpal joints. Normal metacarpi. No visualized acute fracture. The soft tissue structures are unremarkable. RAD/Hand Min 3 Views IMPRESSION: Normal x-ray examination of the hand. Electronically Signed: Art Jenkins MD at 19:57 EDT , Service support ,
--- NOTE | 2019-08-29 20:39 | ED.DCSUM_ITS ---
- ER Visit Summary Date of Service: 08/29/19 Chief Complaint: Left hand injury History of Present Illness: The patient is a 23 F presenting with left hand injury. Patient was at work. She got her hand caught in a conveyor belt. She has pain to her second through fifth digits. Her fifth digit nail is partially avulsed. She is right-handed. No other injuries. Physical Examination: Vitals are stable. Patient is afebrile. Alert no acute distress. HEENT exam is unremarkable. Neck is supple. Lungs are clear and equal bilaterally. Heart is regular rate and rhythm. Extremities left 5th digit medial nail partially avulsed Skin is warm and dry. No focal neurologic deficit. Remainder of exam is unremarkable. Emergency Department Course and Treatment: X-ray left hand shows no acute process. She declined pain medication. [facility] Advised return to ED for worsening complaints. Disposition: Discharge home Impression: Left hand contusion, partially avulsed nail left fifth digit This note was generated with [employer] dictation software. It may contain incorrect words, spelling, and punctuation that were not noted in review of the chart prior to signing ED Disposition - Plan for ED Patient: Instructions: CRUSH INJURY, Hand/Finger Referrals: Corporate,Care [GROUP OF PHYSICIANS] - [facility] Rossi [Primary Care Provider] -
[2019-08-29] MEDS: Diphth,Pertuss(Acell),Tet Vac 0.5 ML Vial IM (21:00)
[2019-08-29 21:25] VITALS: RESP 18
== END 2019-08-29 21:26 | disposition home or self-care (01) ==
LOC: ED 20:23
PROVIDERS: Emergency Provider Emergency Medicine; Family Provider Family Medicine; PCP Family Medicine
DX: S60.222A Contusion of left hand, initial encounter (principal); S61.307A Unspecified open wound of left little finger with damage to nail, initial encounter; W23.0XXA Caught, crushed, jammed, or pinched between moving objects, initial encounter; Y93.9 Activity, unspecified; Y92.9 Unspecified place or not applicable; E28.2 Polycystic ovarian syndrome; Z79.84 Long term (current) use of oral hypoglycemic drugs
CPT/HCPCS: 73130; 90471; 90715; 99282

== ENCOUNTER → 2019-12-18 | Outpatient (CLI) | payer BC, OTHER, SELFPAY | END | disposition home or self-care (01) | LOC: LABSPEC 10:33 | PROVIDERS: PCP Family Medicine; Referring Provider Family Medicine; Visit Provider Family Medicine | DX: N39.0 Urinary tract infection, site not specified (principal) | CPT/HCPCS: 87086; 87088 ==

== ENCOUNTER → 2020-04-10 08:55 | Outpatient (CLI) | payer BC, OTHER, SELFPAY ==
[2020-04-12 12:07] LABS: Alternaria alternata <0.10 kU/L (Class 0); Aspergillus fumigatus <0.10 kU/L (Class 0); Bahia Grass <0.10 kU/L (Class 0); Bermuda Grass 0.13 kU/L (Class 0/I); Bluegrass, Kentucky <0.10 kU/L (Class 0); Cat Hair/Dander, Standard <0.10 kU/L (Class 0); Cladosporium herbarum <0.10 kU/L (Class 0); Cockroach, American 0.27 kU/L (Class 0/I); D farinae Mite 0.29 kU/L (Class 0/I); D pteronyssinus 0.31 kU/L (Class 0/I); Dog Epithelia <0.10 kU/L (Class 0); Elm, American White <0.10 kU/L (Class 0); Hazelnut Tree <0.10 kU/L (Class 0); Hickory, White <0.10 kU/L (Class 0); Johnson Grass <0.10 kU/L (Class 0); Maple/Box Elder <0.10 kU/L (Class 0); Mucor racemosus <0.10 kU/L (Class 0); Mugwort <0.10 kU/L (Class 0); Mulberry, White <0.10 kU/L (Class 0); Oak, White <0.10 kU/L (Class 0); Penicillium chrysogen <0.10 kU/L (Class 0); Pigweed, Rough <0.10 kU/L (Class 0); Plantain, English <0.10 kU/L (Class 0); Ragweed, Short/Common 0.17 kU/L (Class 0/I); Sheep Sorrel(Dock) <0.10 kU/L (Class 0); Stemphylium herbarum <0.10 kU/L (Class 0); Sweet Gum <0.10 kU/L (Class 0); Sycamore, American <0.10 kU/L (Class 0)
[2020-04-12 13:24] LABS: Nettle <0.10 kU/L (Class 0)
== END ==
PROVIDERS: PCP Family Medicine; Visit Provider Family Medicine
DX: T78.40XA Allergy, unspecified, initial encounter (principal)
CPT/HCPCS: 36415; 86003

== ENCOUNTER → 2020-05-07 13:08 | Outpatient (CLI) | payer BC, OTHER, SELFPAY ==
--- NOTE | 2020-05-07 13:09 | RAD_ITS ---
STUDY: X-RAY - RIGHT FOOT CLINICAL: Female, 24 years old. DROPPED SOMETHING ON TOP OF FOOT, PAIN ACROSS TOP AREA TECHNIQUE: 3 view(s) of the foot. COMPARISON: None. FINDINGS: Normal talus, calcaneus, and tarsal bones. Normal visualized subtalar, talonavicular, calcaneocuboid, tarsal and tarsometatarsal articulations. Normal metatarsi. Normal metatarsophalangeal joint of the great toe. Normal tibial and fibular sesamoid bones. Normal interphalangeal joint of the great toe. Normal phalanges of the great toe. Normal second through fifth metatarsophalangeal joints. Normal interphalangeal joints and phalanges of the lesser toes. Dorsal soft tissue swelling. RAD/Foot min 3 Views IMPRESSION: Dorsal soft tissue swelling. Electronically Signed: Ubaldo Pineda, at 13:33 EDT , Service support ,
== END ==
PROVIDERS: PCP Family Medicine; Referring Provider Physician Assistant; Visit Provider Physician Assistant
DX: S99.921A Unspecified injury of right foot, initial encounter (principal)
CPT/HCPCS: 73630

== ENCOUNTER → 2021-02-09 07:59 | Outpatient (CLI) | payer OTHER, SELFPAY ==
[2020-10-29 09:36] VITALS: BMI 35.9
[2021-02-09 10:35] LABS: ALB/GLOB Ratio 1.1 RATIO (0.9-2.4); AST(SGOT) 14 U/L (15-37); Alanine Aminotransfer ALT/SGPT 29 U/L (13-56); Albumin, Serum 3.8 g/dL (3.2-5.0); Alkaline Phosphatase 81 U/L (45-117); Anion Gap 8 (5-15); BUN 11 mg/dL (7-18); BUN/Creat Ratio 13.3 RATIO (10-20); Calcium,Total 9.1 mg/dL (8.5-10.1); Chloride 104 mmol/L (98-107); Creatinine, Serum 0.83 mg/dL (0.55-1.02); EST Glomerular Filtration Rate 89 mL/min (>60); Est Glom Filt Rate - Afr Amer 107 mL/min (>60); Globulin 3.6 g/dL (2.2-4.2); Glucose 82 mg/dL (74-106); Potassium 3.5 mmol/L (3.5-5.1); Protein, Total 7.4 g/dL (6.4-8.2); Sodium Level 136 mmol/L (136-145); Thyroid Stim Hormone (TSH) 2.87 uIU/mL (0.358-3.74)
== END ==
PROVIDERS: PCP Family Medicine; Referring Provider Internal Medicine Endocrinology, Diabetes & Metabolism; Visit Provider Internal Medicine Endocrinology, Diabetes & Metabolism
DX: E03.8 Other specified hypothyroidism (principal)
CPT/HCPCS: 36415; 80053; 84443

== ENCOUNTER 2021-03-10 21:42 | Emergency (ER) | payer OTHER, SELFPAY ==
[2021-02-11 08:09] VITALS: BMI 37.8
[2021-03-10 21:43] VITALS: BP 133/85; PULSE 84; RESP 16; TEMP 36.6; O2SAT 100; BMI 39.1
--- NOTE | 2021-03-10 22:06 | EX.ED.DYSGE1 ---
HPI History of Present Illness Chief Complaint: Anxiety Narrative Narrative: Patient presenting today for evaluation as she stated she started to have wheezing while she was at work today. She thinks it might have been a chemical in the air. Patient states that she took her albuterol inhaler multiple times states that she began having anxiety. She is not sure if it is due to her history of anxiety or from taking too much albuterol. She has not had fever, chills, cough, cold symptoms. She denies chest pain or shortness of breath currently. 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 Incisional pain Limb weakness Low back strain Obesity PCOS (polycystic ovarian syndrome) Pharyngitis, acute Severe headache Thyroid disease Umbilical hernia without obstruction or gangrene Home Medications albuterol sulfate 90 mcg/actuation aerosol inhaler gm INHALATION 02/11/21 [History Last Taken Unknown] benzonatate 100 mg capsule capsule PO 02/11/21 [History Last Taken Unknown] drospirenone 3 mg-ethinyl estradiol 0.02 mg tablet 1 tab PO QDAY #84 tablet 02/11/21 [Rx Last Taken Unknown] fluoxetine 10 mg capsule ea PO 02/11/21 [History Last Taken Unknown] flutamide 125 mg capsule 125 mg PO BID #180 cap 02/11/21 [Rx Last Taken Unknown] levothyroxine 112 mcg tablet 112 mcg PO DAILY #90 tablet 02/11/21 [Rx Last Taken Unknown] Allergy/AdvReac Type Severity Reaction Status Date / Time acetaminophen [From [facility]] Allergy Unknown Unknown Verified 03/10/21 21:45 hydrocodone [From [facility]] Allergy Unknown Unknown Verified 03/10/21 21:45 amoxicillin [From Augmentin] Allergy Unknown Verified 03/10/21 21:45 clavulanic acid Allergy Unknown Verified 03/10/21 21:45 [From Augmentin] Penicillins Allergy Hives Verified 03/10/21 21:45 Family History Mother Diabetes Hypertension Father Heart disease Hypertension Other Asthma Hormone deficiency Surgical History Hx of ovarian cystectomy Hx of wisdom tooth extraction Social History Smoking Status: Never smoker second hand exposure: No alcohol intake: current alcohol intake frequency: holidays/special occasions only substance use type: does not use caffeine: Yes what type of physical activity do you participate in: walking frequency: other ROS ROS ED Constitutional Constitutional ED: Denies chills, fever(s) or sweats Eyes Eyes: Denies blurry vision or change in vision ENT ENT ED: Denies ear pain, rhinorrhea or sore throat Cardiovascular Cardiovascular: Denies chest pain, palpitations or racing heartbeat Respiratory/Chest Respiratory/Chest: Reports dyspnea; Denies cough or sputum Gastrointestinal Gastrointestinal: Denies abdominal pain, constipation, diarrhea or vomiting Genitourinary Genitourinary ED: Denies dysuria, hematuria or urinary frequency Musculoskeletal Musculoskeletal: Denies arthralgias, myalgias or neck pain Integumentary Denies abscess, Abrasions or rash Neurologic Neurologic: Denies headache(s), paresthesias or weakness Psychiatric Psychiatric: Reports anxiety; Denies depression, suicidal ideation or suicidal thoughts Endocrine Endocrinology: Denies polydipsia or polyuria EXAM Physical Exam Const Vital Signs: 03/10/21 21:43 Temperature 97.9 F Temperature Source Temporal Pulse Rate 84 Respiratory Rate 16 Blood Pressure 133/85 H Blood Pressure Mean 101 Pulse Ox 100 Oxygen Delivery Method Room Air Positive well nourished General Appearance ED: NAD; Negative for pallor HEENT Reports normocephalic, head/scalp atraumatic and moist mucous membranes Eyes PERRL and EOMs intact bilaterally Neck no lymphadenopathy and supple Chest Wall inspection of chest normal and palpation of chest normal Resp normal respiratory effort and clear to auscultation bilaterally Auscultation: Negative for rales, rhonchi or wheezes Cardio regular rate and regular rhythm GI normal to inspection, nondistended, normoactive bowel sounds and non-distended Auscultation: normoactive bowel sounds Palpation: soft Narrative: Deferred Back/Spine no CVA tenderness General Back: Negative for CVA tenderness Cervical Spine: Negative for cervical spine tenderness Extremity normal to inspection General Extremety ED: Yes edema and tenderness General Extremity: edema Neuro oriented x3 and CN's II-XII intact bilaterally Sensorium / Orientation: alert Motor Exam: strength 5/5 throughout Psych mental status grossly normal Attitude: No agitated Skin no rashes or lesions noted and no wounds General Skin Exam: Negative for jaundice or pallor MDM MDM MDM Narrative Medical decision making narrative: Patient seen and evaluated for anxiety and history of shortness of breath. She is not feeling short of breath currently. Patient states she is more feeling anxious at this time. She is unsure if it was due to taking too much albuterol if it was due to her anxiety. She states that she has no stressors. On physical exam she is not wheezing. Her pulse ox is 100% on room air. She is not tachycardic or tachypneic. Patient offered Vistaril for her anxiety. She is adamant that she was wheezing earlier as I will give her a burst of prednisone as well. Patient stable for discharge at this time. Impression: 1. History of asthma 2. Anxiety Discharge Plan Triage Chief Complaint: Anxiety ED Provider: Peetr Crook Dx/Rx/DC Orders Instructions: Asthma, ED Anxiety Reaction Prescriptions: No Action albuterol sulfate 90 mcg/actuation HFA aerosol inhaler INHALATION RF: 0 benzonatate 100 mg capsule PO RF: 0 fluoxetine 10 mg capsule PO RF: 0 drospirenone-ethinyl estradiol [LYLA (28)] 3-0.02 mg tablet 1 tab PO QDAY Qty: 84 RF: 3 levothyroxine [Synthroid] 112 mcg tablet 112 mcg PO DAILY Qty: 90 RF: 3 flutamide 125 mg capsule 125 mg PO BID Qty: 180 RF: 3 Primary Care Provider: Te Rossi Referrals: Te Rossi [Primary Care Provider] - Disposition Disposition: Home, self care
[2021-03-10 22:09] VITALS: BP 150/94; PULSE 90; RESP 18; O2SAT 98
== END 2021-03-10 22:18 | disposition home or self-care (01) ==
LOC: ED 22:15
PROVIDERS: Emergency Provider Student in an Organized Health Care Education/Training Program; PCP Family Medicine
DX: J45.909 Unspecified asthma, uncomplicated (principal); F41.9 Anxiety disorder, unspecified; E28.2 Polycystic ovarian syndrome; E66.9 Obesity, unspecified; Z68.39 Body mass index [BMI] 39.0-39.9, adult; E06.3 Autoimmune thyroiditis; Z86.2 Personal history of diseases of the blood and blood-forming organs and certain disorders involving the immune mechanism; Z79.899 Other long term (current) drug therapy
CPT/HCPCS: 99283

== ENCOUNTER → 2021-08-09 | Outpatient (CLI) | payer OTHER, SELFPAY | END | disposition home or self-care (01) | PROVIDERS: PCP Family Medicine; Referring Provider Physician Assistant; Visit Provider Physician Assistant | DX: Z11.52 Encounter for screening for COVID-19 (principal) | CPT/HCPCS: 87635; U0005; U0003 ==

== ENCOUNTER → 2021-08-12 | Outpatient (CLI) | payer OTHER, SELFPAY | END | disposition home or self-care (01) | LOC: LABSPEC 12:27 | PROVIDERS: PCP Family Medicine; Referring Provider Physician Assistant; Visit Provider Physician Assistant | DX: Z11.52 Encounter for screening for COVID-19 (principal) | CPT/HCPCS: 87635; U0005; U0003 ==

== ENCOUNTER → 2021-08-16 | Outpatient (CLI) | payer OTHER, SELFPAY | END | disposition home or self-care (01) | PROVIDERS: PCP Family Medicine; Referring Provider Family Medicine; Visit Provider Family Medicine | DX: Z20.822 Contact with and (suspected) exposure to COVID-19 (principal) | CPT/HCPCS: 87635; U0005; U0003 ==

== ENCOUNTER → 2021-08-18 | Outpatient (CLI) | payer OTHER, SELFPAY | END | disposition home or self-care (01) | PROVIDERS: PCP Family Medicine; Referring Provider Registered Nurse; Visit Provider Registered Nurse | DX: Z20.822 Contact with and (suspected) exposure to COVID-19 (principal) | CPT/HCPCS: 87633; 87635; U0005; U0003 ==

== ENCOUNTER 2022-02-14 10:40 | Outpatient (CLI) | payer BC, SELFPAY ==
[2022-02-14 12:25] LABS: Hemoglobin A1c 5.2 % (3.8-5.6)
[2022-02-14 12:48] LABS: AST(SGOT) 23 U/L (15-37); Alanine Aminotransfer ALT/SGPT 41 U/L (13-56); Albumin, Serum 3.7 g/dL (3.2-5.0); Alkaline Phosphatase 82 U/L (45-117); Anion Gap 7 (5-15); BUN 11 mg/dL (7-18); BUN/Creat Ratio 11.3 RATIO (10-20); Calcium,Total 9.3 mg/dL (8.5-10.1); Chloride 107 mmol/L (98-107); Cholesterol 179 mg/dL (200); Creatinine, Serum 0.98 mg/dL (0.55-1.02); EST Glomerular Filtration Rate 73 mL/min (>60); Est Glom Filt Rate - Afr Amer 88 mL/min (>60); Globulin 3.7 g/dL (2.2-4.2); Glucose 83 mg/dL (74-106); High Density Lipoprotein 50 mg/dL; Potassium 3.8 mmol/L (3.5-5.1); Protein, Total 7.4 g/dL (6.4-8.2); Sodium Level 140 mmol/L (136-145); T4 Free Direct 0.95 ng/dL (0.76-1.46); Thyroid Stim Hormone (TSH) 2.46 uIU/mL (0.358-3.74); Triglycerides 192 mg/dL; Very Low Density Lipoprotein 38 mg/dL (5-40)
== END 2022-02-14 23:59 | disposition home or self-care (01) ==
LOC: BIMLAB 10:41
PROVIDERS: PCP Family Medicine; Referring Provider Internal Medicine Endocrinology, Diabetes & Metabolism; Visit Provider Internal Medicine Endocrinology, Diabetes & Metabolism
DX: E28.2 Polycystic ovarian syndrome (principal); E03.8 Other specified hypothyroidism; E06.3 Autoimmune thyroiditis; R73.09 Other abnormal glucose
CPT/HCPCS: 36415; 80053; 80061; 83036; 84439; 84443

== ENCOUNTER → 2022-05-17 | Outpatient (CLI) | payer BC, SELFPAY ==
[2022-05-17 10:22] LABS: Hematocrit 41.2 % (37-47); Hemoglobin 13.2 g/dL (12.0-15.0); Mean Corpuscular Hgb 27.7 pg (27.0-32.0); Mean Corpuscular Volume 86.6 fL (81-99); Mean Platelet Vol. 9.7 fl (6.2-12.0); Platelet Count 387 K/mm3 (150-450); RBC Distribution Width CV 12.7 % (11.6-14.6); RBC Distribution Width SD 40.3 fl (35.1-43.9); Red Blood Count 4.76 M/mm3 (4.2-5.4)
== END | disposition home or self-care (01) ==
LOC: MTLAB 08:46
PROVIDERS: PCP Family Medicine; Referring Provider Psychiatry & Neurology Neurology; Visit Provider Psychiatry & Neurology Neurology
DX: G43.109 Migraine with aura, not intractable, without status migrainosus (principal)
CPT/HCPCS: 36415; 85027

== ENCOUNTER → 2022-05-30 | Outpatient (CLI) | payer BC, SELFPAY ==
--- NOTE | 2022-05-30 07:20 | MRI_ITS ---
STUDY: MRI BRAIN WITH AND WITHOUT CONTRAST REASON FOR EXAM: Female, 26 years old. migraine headaches with visual aura TECHNIQUE: Standardized multiplanar fat and water weighted pulse sequences were obtained. IV Yes YES was administered for the contrast portion of the examination. COMPARISON: None. FINDINGS: Normal size of the ventricles and extra-axial spaces for the patient''s age. Normal white matter tracts of the supratentorial brain. Normal bilateral basal ganglia. Normal thalami. There is no extra-axial fluid accumulation. Normal flow voids within the major intracranial circulation suggesting patency by spin echo criteria. Normal venous enhancement. There is no enhancing intra-axial or extra-axial abnormality. Normal sella turcica, pituitary gland, infundibular stalk, optic chiasm and hypothalamus. Normal tectal plate and pineal gland. Normal midbrain, douglas and medulla. Normal cerebellum. Normal basal cisterns. Normal bilateral temporal bones. Normal bilateral internal auditory canals. No demonstrated orbital abnormality, within the constraints of a routine brain study. Normal visualized paranasal sinuses. Normal calvarium and skull base. Normal visualized soft tissue structures. Normal visualized upper cervical spine. MRI/Brain W/WO Contrast IMPRESSION: Normal unenhanced and enhanced MRI of the brain. Electronically Signed: Erick Gallo MD at 12:13 EDT ,
== END | disposition home or self-care (01) ==
PROVIDERS: PCP Family Medicine; Referring Provider Psychiatry & Neurology Neurology; Visit Provider Psychiatry & Neurology Neurology
DX: G43.109 Migraine with aura, not intractable, without status migrainosus (principal)
CPT/HCPCS: 70553; A9575

== ENCOUNTER → 2022-07-07 | Outpatient (CLI) | payer BC, SELFPAY ==
[2022-07-07 18:32] LABS: Free T3 2.3 pg/mL (2.18-3.98); Thyroid Stim Hormone (TSH) 0.68 uIU/mL (0.358-3.74)
== END | disposition home or self-care (01) ==
LOC: MTLAB 15:29
PROVIDERS: PCP Family Medicine; Referring Provider Family Medicine; Visit Provider Family Medicine
DX: E03.9 Hypothyroidism, unspecified (principal)
CPT/HCPCS: 36415; 84439; 84443; 84481